=== PATIENT | male | born 1940 | race Caucasian/White ===

== ENCOUNTER → 2018-06-24 | Outpatient (CLI) | payer MEDICARE | END | disposition home or self-care (01) | LOC: RAH 13:08 | PROVIDERS: ATTEND Dermatology | DX: R59.1 Generalized enlarged lymph nodes (principal) | CPT/HCPCS: 76536 ==

== ENCOUNTER → 2018-07-07 | Outpatient (CLI) | payer MEDICARE ==
[2018-07-07 11:27] LABS: INR 1.02 (0.85-1.15); PROTHROMBIN TIME 10.7 SEC (9.6-11.6)
--- NOTE | 2018-07-07 12:45 | NUR ---
U/S GD RIGHT NECK BX PROCEDURE PERFORMED BY DR SAUNDERS . PUNCTURE SITE RIGHT NECK AND PATIENT TOLERATED PROCEDURE WELL. SPECIMEN X 2 COLLECTED AND SENT TO LAB. END OF PROCEDURE AT 1225. BIOPSY NEEDLE REMOVED AND DRESSING APPLIED. NO BLEEDING NOTED. DISCHARGE INSTRUCTIONS GIVEN TO PATIENT AND VERBALIZED UNDERSTANDING. DISCHARGED VIA AMBULATORY AAO X3 WITH NO C/O PAIN. NO SIGNS OF ACTIVE BLEEDING OR HEMATOMA TO RIGHT NECK BX SITE
== END | disposition home or self-care (01) ==
LOC: RAH 10:18
PROVIDERS: ATTEND Internal Medicine Hematology & Oncology
DX: C79.2 Secondary malignant neoplasm of skin (principal); R59.0 Localized enlarged lymph nodes; C80.1 Malignant (primary) neoplasm, unspecified; Z79.01 Long term (current) use of anticoagulants
CPT/HCPCS: 36415; 38505; 76942; 85610; 85730; 88108; 88305 ×2; 88341; 88342; A4215

== ENCOUNTER → 2020-07-07 | Outpatient (CLI) | payer MEDICARE | END | disposition home or self-care (01) | LOC: RAH 13:56 | PROVIDERS: ATTEND Orthopaedic Surgery | DX: M75.101 Unspecified rotator cuff tear or rupture of right shoulder, not specified as traumatic (principal) | CPT/HCPCS: 73200 ==

== ENCOUNTER 2020-12-03 13:58 | Emergency (ER) | payer MEDICARE ==
[~2020-12-03] VITALS: Ht 188 cm; Wt 78.9 kg
[~2020-12-03 13:58] MED LIST: CARV25TA PO; FURO40TA5 PO; HYDR-4154 PO; ISOS30TA92 PO; LISI20TA24 PO; PRAV20TA4 PO; TRAZ-185 PO
[2020-12-03 14:02] VITALS: BP 136/68
[2020-12-03 16:21] VITALS: BP 149/86
[2020-12-03] MEDS ORDERED: GOLY4L PO (17:58)
[2020-12-03] MEDS ORDERED: SENN1TAB53 PO (17:58)
[2020-12-03 18:04] VITALS: BP 132/71
== END 2020-12-03 18:35 | disposition home or self-care (01) ==
LOC: EDH 13:58
DX: K56.41 Fecal impaction (principal); J44.9 Chronic obstructive pulmonary disease, unspecified; I11.0 Hypertensive heart disease with heart failure; I50.9 Heart failure, unspecified; F41.9 Anxiety disorder, unspecified; E78.00 Pure hypercholesterolemia, unspecified; I25.10 Atherosclerotic heart disease of native coronary artery without angina pectoris; Z79.899 Other long term (current) drug therapy; Z85.820 Personal history of malignant melanoma of skin; Z95.0 Presence of cardiac pacemaker

== ENCOUNTER 2021-06-08 09:28 | Emergency (ER) | payer MEDICARE ==
[~2021-06-08] VITALS: Ht 188 cm; Wt 77.1 kg
[~2021-06-08 09:28] MED LIST changes: +GOLY4L PO; +SENN1TAB53 PO
[2021-06-08 10:06] LABS: BASOPHILS % (AUTO) 0.5 % (0.0-5.0); EOSINOPHILS % (AUTO) 3.2 % (0.0-8.0); HEMATOCRIT 33.4 % (42-54); LYMPHOCYTES % (AUTO) 13.2 % (21.0-51.0); MEAN CORPUSCULAR HEMOGLOBIN 31.3 pg (27.0-33.0); MEAN CORPUSCULAR HGB CONC 31.7 g/dL (32.0-36.0); MEAN CORPUSCULAR VOLUME 98.5 fL (79-99); MONOCYTES % (AUTO) 6.1 % (3.0-13.0); NEUTROPHILS % (AUTO) 76.5 % (40.0-77.0); PLATELET COUNT (AUTO) 96 K/uL (130-400); RED BLOOD CELL COUNT(AUTO) 3.39 MIL/uL (4.50-6.20); RED CELL DISTRIBUTION WIDTH 14.4 % (11.0-15.5); WHITE BLOOD COUNT (AUTO) 7.6 K/uL (4.8-10.8)
[2021-06-08 10:11] LABS: CREATININE 3.9 mg/dL (0.5-1.5)
[2021-06-08 10:15] LABS: ALBUMIN 3.5 g/dL (3.5-5.0); BILIRUBIN,TOTAL 0.8 mg/dL (0.2-1.0); TOTAL PROTEIN, SERUM 6.7 g/dL (6.0-8.3)
[2021-06-08 10:18] LABS: APPEARANCE,URINE Clear (CLEAR); BILIRUBIN,URINE Negative (NEGATIVE); COLOR,URINE Yellow (YELLOW); GLUCOSE, URINE (UA) Negative (NEGATIVE); KETONES,URINE Negative (NEGATIVE); LEUKOCYTE ESTERASE ,URINE Trace (NEGATIVE); NITRATE,URINE Negative (NEGATIVE); OCCULT BLOOD,URINE Negative (NEGATIVE); PROTEIN,URINE 300 mg/dL (NEGATIVE); UROBILINOGEN,URINE 0.2 mg/dL (0.2-1.0)
[2021-06-08] MEDS ORDERED: HYOSCYAMINE SULFATE 0.125 MG TAB.SUBL SL SCH (10:30)
[2021-06-08 10:32] LABS: BACTERIA,URINE Rare /HPF (None Seen); RBC,URINE None Seen /HPF (0-1); SQUAMOUS EPITHELIAL CELL,UR Rare /HPF (0-2); WBC,URINE 0-1 /HPF (0-1)
[2021-06-08 11:41] VITALS: BP 128/63
== END 2021-06-08 11:53 | disposition home or self-care (01) ==
LOC: EDH 09:28
DX: K59.00 Constipation, unspecified (principal); I50.9 Heart failure, unspecified; I11.0 Hypertensive heart disease with heart failure; Z79.899 Other long term (current) drug therapy; Z85.528 Personal history of other malignant neoplasm of kidney; Z95.0 Presence of cardiac pacemaker
CPT/HCPCS: 36415; 74176; 80053; 81001; 83690; 84484; 85025; 93005

== ENCOUNTER 2021-10-05 20:56 | Inpatient (IN) | payer MEDICARE ==
[~2021-10-05] VITALS: Ht 188 cm; Wt 79.2 kg
[2021-10-05 21:22] LABS: BASOPHILS % (AUTO) 0.2 % (0.0-5.0); HEMATOCRIT 29.3 % (42-54); LYMPHOCYTES % (AUTO) 9.8 % (21.0-51.0); MEAN CORPUSCULAR HEMOGLOBIN 31.8 pg (27.0-33.0); MEAN CORPUSCULAR HGB CONC 32.4 g/dL (32.0-36.0); MONOCYTES % (AUTO) 5.8 % (3.0-13.0); NEUTROPHILS % (AUTO) 82.3 % (40.0-77.0); PLATELET COUNT (AUTO) 81 K/uL (130-400); RED BLOOD CELL COUNT(AUTO) 2.99 MIL/uL (4.50-6.20); RED CELL DISTRIBUTION WIDTH 15.9 % (11.0-15.5); WHITE BLOOD COUNT (AUTO) 10.3 K/uL (4.8-10.8)
[2021-10-05] MEDS ORDERED: ONDANSETRON 4MG INJ IVP ONE (21:30)
[2021-10-05] MEDS ORDERED: MORPHINE 4 MG SYG IVP ONE ×2 (21:30→22:30)
[2021-10-05 21:31] LABS: CREATININE 3.9 mg/dL (0.5-1.5); POTASSIUM 4.4 mmol/L (3.5-5.1)
[2021-10-05 21:32] LABS: INR 1.15 (0.85-1.15); PROTHROMBIN TIME 12.4 SEC (9.6-11.6)
[2021-10-05 21:33] LABS: PARTIAL THROMBOPLASTIN TIME 26.2 SEC (26.3-35.5)
[2021-10-05 21:40] LABS: ALBUMIN 2.9 g/dL (3.5-5.0)
[2021-10-05] MEDS ORDERED: HYDROMORPHONE 0.5 MG SYG (0.5MG/0.5ML) IVP PRN (23:00)
[2021-10-05] MEDS ORDERED: ACETAMINOPHEN 325 MG TAB PO PRN (23:30)
[2021-10-05] MEDS ORDERED: ONDANSETRON 4MG INJ IV PRN (23:30)
[2021-10-06] VITALS (19 sets, daily range): BP systolic 109–142; BP diastolic 44–73
[2021-10-06] MEDS: HYDROMORPHONE 1 MG INJ IV PRN ×4 (00:45→19:40)
[2021-10-06] MEDS: HYDROCODONE/ACETAMINOPHEN 5/325 MG TAB PO PRN (02:07)
[2021-10-06 05:55] LABS: BASOPHILS % (AUTO) 0.4 % (0.0-5.0); HEMATOCRIT 29.8 % (42-54); LYMPHOCYTES % (AUTO) 10.7 % (21.0-51.0); MEAN CORPUSCULAR HEMOGLOBIN 31.1 pg (27.0-33.0); MEAN CORPUSCULAR HGB CONC 31.5 g/dL (32.0-36.0); MEAN CORPUSCULAR VOLUME 98.7 fL (79-99); MONOCYTES % (AUTO) 7.8 % (3.0-13.0); NEUTROPHILS % (AUTO) 79.6 % (40.0-77.0); PLATELET COUNT (AUTO) 77 K/uL (130-400); RED BLOOD CELL COUNT(AUTO) 3.02 MIL/uL (4.50-6.20)
[2021-10-06 06:04] LABS: INR 1.14 (0.85-1.15); PROTHROMBIN TIME 12.3 SEC (9.6-11.6)
[2021-10-06 06:05] LABS: PARTIAL THROMBOPLASTIN TIME 29.2 SEC (26.3-35.5)
[2021-10-06 06:07] LABS: ALBUMIN 2.9 g/dL (3.5-5.0); CREATININE 4.2 mg/dL (0.5-1.5); PHOSPHORUS 4.2 mg/dL (2.5-4.9); POTASSIUM 4.7 mmol/L (3.5-5.1)
[2021-10-06 06:08] LABS: TOTAL PROTEIN, SERUM 5.8 g/dL (6.0-8.3)
[2021-10-06] MEDS ORDERED: PRAV10TA39 PO (10:23)
[2021-10-06] MEDS ORDERED: HYDR-3830 PO (10:23)
[2021-10-06] MEDS ORDERED: TIZA-194 PO (10:23)
[2021-10-06] MEDS: CARVEDILOL 25 MG TABLET PO SCH (21:07)
[2021-10-07] VITALS (23 sets, daily range): BP systolic 112–146; BP diastolic 31–60
[2021-10-07 05:37] LABS: HEMATOCRIT 31.2 % (42-54); MEAN CORPUSCULAR HEMOGLOBIN 31.1 pg (27.0-33.0); MEAN CORPUSCULAR HGB CONC 31.1 g/dL (32.0-36.0); PLATELET COUNT (AUTO) 88 K/uL (130-400); RED BLOOD CELL COUNT(AUTO) 3.12 MIL/uL (4.50-6.20); RED CELL DISTRIBUTION WIDTH 15.9 % (11.0-15.5); WHITE BLOOD COUNT (AUTO) 8.7 K/uL (4.8-10.8)
[2021-10-07 05:54] LABS: BAND NEUTROPHILS % (MANUAL) 1 % (0-2); EOSINOPHILS % (MANUAL) 2 % (1-6); LYMPHOCYTES % (MANUAL) 13 % (22-44); MAN.DIFF COMMENT-IMPRESSION MANUAL DIFFERENTIAL; MONOCYTES % (MANUAL) 1 % (2-9); SEGMENTED NEUTROPHILS % 83 % (40-70)
[2021-10-07 05:57] LABS: ALBUMIN 2.8 g/dL (3.5-5.0); CREATININE 3.7 mg/dL (0.5-1.5); PHOSPHORUS 4.2 mg/dL (2.5-4.9); POTASSIUM 4.3 mmol/L (3.5-5.1); TOTAL PROTEIN, SERUM 5.6 g/dL (6.0-8.3)
[2021-10-07] MEDS: FAMOTIDINE 20MG TAB PO SCH (09:00)
[2021-10-07] MEDS ORDERED: LISINOPRIL 20 MG TABLET PO SCH (09:00)
[2021-10-07] MEDS: ISOSORBIDE MONO 30MG SR TAB PO SCH (09:00)
[2021-10-07] MEDS: CARVEDILOL 25 MG TABLET PO SCH ×2 (09:16→21:30)
[2021-10-07] MEDS ORDERED: KETAMINE 50MG/ML SYRINGE 50 MG/ML DISP.SYRIN IV ONE (12:04)
[2021-10-07] MEDS ORDERED: MIDAZOLAM HCL 1 MG/ML 2ML VIAL ONE (12:04)
[2021-10-07] MEDS ORDERED: ROPIVACAINE 0.5% 5MG/ML 30ML IJ ONE (12:04)
[2021-10-07] MEDS ORDERED: PROPOFOL 10 MG/ML 20ML VIAL IV ONE (12:04)
[2021-10-07] MEDS ORDERED: CEFAZOLIN SODIUM 2 GM VIAL IV ONE (12:08)
[2021-10-07] MEDS ORDERED: DOCUSATE SODIUM PO PRN (13:00)
[2021-10-07] MEDS ORDERED: SENNOSIDES PO PRN (13:00)
[2021-10-07] MEDS ORDERED: TIZANIDINE HCL 2 MG TABLET PO PRN (13:00)
[2021-10-07] MEDS ORDERED: HYDROXYZINE 10 MG TABLET PO PRN (13:00)
[2021-10-07] MEDS ORDERED: EPHEDRINE SULFATE 50 MG/ML AMPULE ONE (13:01)
[2021-10-07] MEDS ORDERED: NOREPINEPHRINE BITARTRATE 1 MG/1 ML ML IV ONE (13:04)
[2021-10-07] MEDS ORDERED: CEFAZOLIN SODIUM 1 GM VIAL ONE (13:08)
[2021-10-07] MEDS: HYDROMORPHONE 1 MG INJ IV PRN ×2 (15:30→22:30)
[2021-10-07] MEDS: CEFAZOLIN SODIUM 1 GM VIAL IVP SCH (17:02)
[2021-10-07] MEDS ORDERED: CARVEDILOL 25 MG TABLET PO SCH (21:00)
[2021-10-07] MEDS: **HM**(Pravastatin Sodium 10 MG PO SCH (21:00)
[2021-10-07] MEDS: LISINOPRIL 20 MG TABLET PO SCH (21:29)
[2021-10-07] MEDS: HYDRALAZINE 25MG TABLET PO SCH (21:30)
[2021-10-08] VITALS: BP 122/41
[2021-10-08] MEDS: CEFAZOLIN SODIUM 1 GM VIAL IVP SCH ×3 (00:53→17:45)
[2021-10-08 04:00] VITALS: BP 143/48
[2021-10-08] MEDS: HYDROMORPHONE 1 MG INJ IV PRN (04:08)
[2021-10-08 04:32] LABS: HEMATOCRIT 27.7 % (42-54); MEAN CORPUSCULAR HEMOGLOBIN 31.6 pg (27.0-33.0); MEAN CORPUSCULAR HGB CONC 32.5 g/dL (32.0-36.0); MEAN CORPUSCULAR VOLUME 97.2 fL (79-99); RED BLOOD CELL COUNT(AUTO) 2.85 MIL/uL (4.50-6.20); RED CELL DISTRIBUTION WIDTH 15.9 % (11.0-15.5); WHITE BLOOD COUNT (AUTO) 8.1 K/uL (4.8-10.8)
[2021-10-08 04:54] LABS: CREATININE 4.5 mg/dL (0.5-1.5); POTASSIUM 4.8 mmol/L (3.5-5.1)
[2021-10-08] MEDS: HYDROCODONE/ACETAMINOPHEN 5/325 MG TAB PO PRN ×2 (06:06→15:02)
[2021-10-08 08:00] VITALS: BP 139/46
[2021-10-08] MEDS ORDERED: ISOSORBIDE MONO 30MG SR TAB PO SCH (09:00)
[2021-10-08] MEDS: CARVEDILOL 25 MG TABLET PO SCH ×2 (09:45→21:00)
[2021-10-08] MEDS: HYDRALAZINE 25MG TABLET PO SCH ×2 (09:45→21:27)
[2021-10-08] MEDS: LISINOPRIL 20 MG TABLET PO SCH ×2 (09:46→21:27)
[2021-10-08] MEDS: FUROSEMIDE 40 MG TABLET PO SCH (09:46)
[2021-10-08] MEDS: ISOSORBIDE MONO 30MG SR TAB PO SCH (09:46)
[2021-10-08] MEDS: TRAZODONE HCL 50 MG TAB PO SCH (09:46)
[2021-10-08 12:00] VITALS: BP 117/43
[2021-10-08 16:00] VITALS: BP 117/48
[2021-10-08 20:00] VITALS: BP 119/44
[2021-10-08] MEDS: **HM**(Pravastatin Sodium 10 MG PO SCH (21:00)
[2021-10-09] VITALS (21 sets, daily range): BP systolic 123–164; BP diastolic 42–89
[2021-10-09] MEDS: HYDROCODONE/ACETAMINOPHEN 5/325 MG TAB PO PRN ×2 (00:09→23:13)
[2021-10-09] MEDS: CEFAZOLIN SODIUM 1 GM VIAL IVP SCH ×2 (01:19→08:34)
[2021-10-09 04:20] LABS: BASOPHILS % (AUTO) 0.2 % (0.0-5.0); EOSINOPHILS % (AUTO) 1.5 % (0.0-8.0); LYMPHOCYTES % (AUTO) 8.5 % (21.0-51.0); MEAN CORPUSCULAR HEMOGLOBIN 31.6 pg (27.0-33.0); MEAN CORPUSCULAR HGB CONC 33.2 g/dL (32.0-36.0); MEAN CORPUSCULAR VOLUME 95.1 fL (79-99); MONOCYTES % (AUTO) 7.3 % (3.0-13.0); PLATELET COUNT (AUTO) 79 K/uL (130-400); RED BLOOD CELL COUNT(AUTO) 2.63 MIL/uL (4.50-6.20); RED CELL DISTRIBUTION WIDTH 15.4 % (11.0-15.5); WHITE BLOOD COUNT (AUTO) 6.5 K/uL (4.8-10.8)
[2021-10-09 04:40] LABS: ALBUMIN 2.3 g/dL (3.5-5.0); ASPARTATE AMINOTRANSFERASE 27 U/L (10-37); CARBON DIOXIDE 29 mmol/L (21-32); CHLORIDE 100 mmol/L (101-111); CREATININE 5.3 mg/dL (0.5-1.5); GLOMERULAR FILTR. RATE CALC 11 mL/min (>60); GLUCOSE,RANDOM 89 mg/dL (70-105); POTASSIUM 4.7 mmol/L (3.5-5.1); SODIUM SERUM 137 mmol/L (136-145); UREA NITROGEN, BLOOD 54 mg/dL (7-18)
[2021-10-09 04:45] LABS: ALANINE AMINOTRANSFERASE < 6 U/L (12-78)
[2021-10-09] MEDS: HYDROMORPHONE 1 MG INJ IV PRN (08:34)
[2021-10-09] MEDS: TRAZODONE HCL 50 MG TAB PO SCH (08:54)
[2021-10-09] MEDS: FAMOTIDINE 20MG TAB PO SCH (08:54)
[2021-10-09] MEDS: CARVEDILOL 25 MG TABLET PO SCH ×2 (09:00→22:14)
[2021-10-09] MEDS: LISINOPRIL 20 MG TABLET PO SCH ×2 (09:00→22:14)
[2021-10-09] MEDS: FUROSEMIDE 40 MG TABLET PO SCH (09:00)
[2021-10-09] MEDS: ISOSORBIDE MONO 30MG SR TAB PO SCH (09:00)
[2021-10-09] MEDS: HYDRALAZINE 25MG TABLET PO SCH ×2 (09:00→22:16)
[2021-10-09] MEDS ORDERED: ACETAMINOPHEN 500 MG TABLET PO PRN (12:00)
[2021-10-09] MEDS ORDERED: IBUPROFEN 600 MG TABLET PO PRN (12:00)
[2021-10-09] MEDS: **HM**(Pravastatin Sodium 10 MG PO SCH (19:32)
[2021-10-10] VITALS: BP 118/54
[2021-10-10 04:00] VITALS: BP 148/49
[2021-10-10] MEDS: HYDROCODONE/ACETAMINOPHEN 5/325 MG TAB PO PRN ×2 (05:23→15:29)
[2021-10-10 07:15] VITALS: BP 137/49
[2021-10-10] MEDS: HYDRALAZINE 25MG TABLET PO SCH (09:15)
[2021-10-10] MEDS: ISOSORBIDE MONO 30MG SR TAB PO SCH (09:16)
[2021-10-10] MEDS: CARVEDILOL 25 MG TABLET PO SCH (09:16)
[2021-10-10] MEDS: TRAZODONE HCL 50 MG TAB PO SCH (09:16)
[2021-10-10] MEDS: FUROSEMIDE 40 MG TABLET PO SCH (09:17)
[2021-10-10] MEDS: LISINOPRIL 20 MG TABLET PO SCH (09:17)
[2021-10-10 11:10] VITALS: BP 118/43
== END 2021-10-10 15:53 | DRG 480 ==
LOC: EDH 20:56 → EDHIP 23:14 → 4DH 10-06 04:31
PROVIDERS: ADMIT Hospitalist; ATTEND Hospitalist
PROC: 5A1D70Z Performance of Urinary Filtration, Intermittent, Less than 6 Hours Per Day (ICD-10-PCS; 2021-10-06)
PROC: 0QS706Z Reposition Left Upper Femur with Intramedullary Internal Fixation Device, Open Approach (ICD-10-PCS; principal; 2021-10-07 13:01)
PROC: 5A1D70Z Performance of Urinary Filtration, Intermittent, Less than 6 Hours Per Day (ICD-10-PCS; 2021-10-09)
DX: S72.142A Displaced intertrochanteric fracture of left femur, initial encounter for closed fracture (principal); N18.6 End stage renal disease; I42.8 Other cardiomyopathies; I50.42 Chronic combined systolic (congestive) and diastolic (congestive) heart failure; I13.2 Hypertensive heart and chronic kidney disease with heart failure and with stage 5 chronic kidney disease, or end stage renal disease; I34.0 Nonrheumatic mitral (valve) insufficiency; D69.6 Thrombocytopenia, unspecified; K80.20 Calculus of gallbladder without cholecystitis without obstruction; Z96.652 Presence of left artificial knee joint; W18.39XA Other fall on same level, initial encounter; Z20.822 Contact with and (suspected) exposure to COVID-19; E11.22 Type 2 diabetes mellitus with diabetic chronic kidney disease; E78.5 Hyperlipidemia, unspecified; Z99.2 Dependence on renal dialysis; Z82.49 Family history of ischemic heart disease and other diseases of the circulatory system; Z90.5 Acquired absence of kidney; Y93.89 Activity, other specified; Y92.89 Other specified places as the place of occurrence of the external cause; Y99.8 Other external cause status; Z85.528 Personal history of other malignant neoplasm of kidney; Z85.820 Personal history of malignant melanoma of skin; Z99.81 Dependence on supplemental oxygen
CPT/HCPCS: 36415; 71045; 73502; 73503; 80048; 80053; 82948; 83735; 84100; 85025; 85027; 85610; 85730; 86704; 86706; 86850; 86900; 86901; 86923; 87040; 87635; 90935; 93005; 93306; 93356; 97039; C9803; G0378; J0690; J1170; J2250; J2270; J2405; J2704; J2795; J3490